=== PATIENT | male | born 1965 | race Caucasian/White ===

== ENCOUNTER 2021-08-03 10:20 | Inpatient (IN) ==
[2021-08-03] MEDS ORDERED: TICAGRELOR 90 MG TABLET ONE (10:24)
[2021-08-03] MEDS ORDERED: ONDANSETRON 4 MG/2 ML VIAL ONE (10:24)
[2021-08-03] MEDS ORDERED: MORPHINE 2 MG/1 ML SYRINGE ONE ×2 (10:24)
[2021-08-03] MEDS ORDERED: MORPHINE 2 MG/1 ML SYRINGE IM STA (10:27)
[2021-08-03] MEDS ORDERED: MORPHINE 2 MG/1 ML SYRINGE IV ONE (10:27)
[2021-08-03] MEDS ORDERED: ONDANSETRON 4 MG/2 ML VIAL IV STA (10:27)
[2021-08-03] MEDS ORDERED: NITROGLYCERIN DRIP 50 MG/250 ML BOTTLE IV PRN ×2 (10:30→10:31)
[2021-08-03] MEDS ORDERED: NITROGLYCERIN SL 0.4 MG TABLET SL ONE (10:31)
[2021-08-03] MEDS ORDERED: NITROGLYCERIN SL 0.4 MG TABLET SL STA (10:31)
[2021-08-03] MEDS ORDERED: TICAGRELOR 90 MG TABLET PO STA (10:32)
[2021-08-03] MEDS ORDERED: SODIUM CHLORIDE 0.9% 1,000 ML IV STA (10:38)
[2021-08-03 10:49] LABS: Basophils # 0.1 10*3/uL (0.0-0.2); Basophils % 0.9 % (0.0-0.8); Eosinophils # 0.1 10*3/uL (0.0-0.87); Eosinophils % 0.7 % (0.00-10.9); Hematocrit 46.2 VOL% (42.0-52.0); Hemoglobin 14.5 GM/DL (14.0-18.0); Immature Granulocytes % 0.2 %; Immature Granulocytes Absolute 0.02 #; Lymphocytes # 1.4 10*3/uL (1.4-4.0); Lymphocytes % 15.5 % (21.2-54.2); Mean Corpuscular HGB Conc 31.4 GM/DL (32-36); Mean Corpuscular Volume 91.8 FL (87-102); Mean Platelet Volume 11.8 FL (9.6-12.0); Monocytes # 0.9 10*3/uL (0.11-0.8); Monocytes % 9.9 % (1.7-12.7); Neutrophils % 72.8 % (38.7-73.9); Platelet Count 190 T/CUMM (130-400); Red Blood Count 5.03 MC/CUMM (3.8-5.5); Red Cell Distribution Width 17.2 % (9.3-17.3); White Blood Count 8.8 T/CUMM (4-12)
[2021-08-03 11:12] LABS: Calcium 9.5 MG/DL (8.5-10.1); Osmolality,Calculated 285.4 MOS/KG (273-304); Potassium 3.4 MMOL/L (3.5-5.1)
[2021-08-03] MEDS ORDERED: NALOXONE 0.4 MG/ML VIAL ONE (11:14)
[2021-08-03 11:16] LABS: INR 1.1; PT Patient Result 12.1 SECS (10.5-12.0)
[2021-08-03 11:17] LABS: Partial Thromboplastin Time < 20.0 SECS (23.8-32.1)
[2021-08-03] MEDS ORDERED: ETOMIDATE 20 MG/10 ML VIAL IV ONE (11:27)
[2021-08-03] MEDS ORDERED: ROCURONIUM 100 MG/10 ML VIAL IV ONE (11:28)
[2021-08-03 11:50] LABS: Anisocytosis 1+; Macrocytosis 1+; Platelet Estimate Normal
[2021-08-03 12:12] LABS: Barbiturates Screen,Urine Negative (Negative); Benzodiazepines Screen,Urine Negative (Negative); Cannabinoid Screen,Urine Negative (Negative); Opiate Screen,Urine Negative (Negative); Phencyclidine Screen,Urine Negative (Negative)
[2021-08-03] MEDS ORDERED: ALBUTEROL 2.5 MG/3 ML NEB RESP TX PRN (12:15)
[2021-08-03] MEDS ORDERED: hydrALAZINE 20 MG/1 ML VIAL IV PRN (12:19)
[2021-08-03] MEDS ORDERED: ONDANSETRON 4 MG/2 ML VIAL IV PRN (12:19)
[2021-08-03] MEDS: SODIUM CHLORIDE 0.9% 1,000 ML IV SCH ×3 (12:30→23:40)
[2021-08-03] MEDS: ALBUTEROL/IPRATROPIUM 3 ML NEB RESP TX SCH ×2 (13:02→19:55)
[2021-08-03 13:05] VITALS: BP 177/121
[2021-08-03 13:10] LABS: Arterial Base Excess iSTAT -3 MMOL/L (-2.5-2.5); Arterial Bicarbonate iSTAT 27.1 MMOL/L (20-26); Arterial O2 Saturation iSTAT 100 % (95-100); Arterial PCO2 iSTAT 69 MM HG (35-48); Arterial PO2 iSTAT 302 MM HG (80-95); Arterial Total CO2 iSTAT 29 MMO/L (23-27); Arterial pH iSTAT 7.204 (7.35-7.45)
[2021-08-03] MEDS ORDERED: MIDAZOLAM 100 MG in SODIUM CHLORIDE 0.9% 80 ML IV PRN (13:34)
[2021-08-03] MEDS ORDERED: METOPROLOL TARTRATE 5 MG/5 ML VIAL IV PRN (14:13)
[2021-08-03] MEDS ORDERED: MORPHINE 2 MG/1 ML SYRINGE IV PRN (14:22)
[2021-08-03 14:51] LABS: Arterial Base Excess iSTAT -2 MMOL/L (-2.5-2.5); Arterial Bicarbonate iSTAT 26.6 MMOL/L (20-26); Arterial O2 Saturation iSTAT 99 % (95-100); Arterial PCO2 iSTAT 59 MM HG (35-48); Arterial PO2 iSTAT 150 MM HG (80-95); Arterial Total CO2 iSTAT 28 MMO/L (23-27); Arterial pH iSTAT 7.265 (7.35-7.45)
[2021-08-03] MEDS ORDERED: POTASSIUM CHLORIDE 20 MEQ TABLET PO ONE (15:00)
[2021-08-03 15:01] LABS: Lactic Acid 1.4 MMOL/L (0.4-2.0)
[2021-08-03 15:14] LABS: Amorphous Crystals,Urine Occasional /HPF (Few); Bacteria,Urine Occasional /HPF (Few); Bilirubin,Urine Small mg/dL (Negative); Blood, Urine Small mg/dL (Negative); Glucose,Urine (UA) Negative (Negative); Hyaline Casts,Urine 21 /LPF (0-3); Ketones,Urine Negative (Negative); Mucus,Urine Occasional /LPF (Occasional); Nitrite,Urine Negative (Negative); Protein,Urine 100 mg/dL (Negative); RBC,Urine 4 /HPF (0-4); Sperm,Urine Occasional /HPF (Negative); Squamous Epithelial Cell,Urine Occasional /HPF (0-10); Urine Appearance Cloudy (Clear); Urine Color Yellow (Yellow); Urine Specific Gravity 1.026 (1.001-1.035)
[2021-08-03 15:15] LABS: Urine Urobilinogen 0.2 eU/dL (<2.0)
[2021-08-03 15:40] LABS: Hepatitis B Core IgM Quant 0.16 Index; Hepatitis B Surface Ag Result Non-Reactive (NonReactive); Hepatitis C Virus Ab Quant 0.05 Index; Hepatitis C Virus Ab Result Non-Reactive (NonReactive)
[2021-08-03 16:30] LABS: HIV Antigen/Antibody Result Nonreactive (Nonreactive)
[2021-08-03] MEDS: PANTOPRAZOLE 40 MG VIAL IV SCH (16:30)
[2021-08-03] MEDS: POTASSIUM CHLORIDE RIDER 10 MEQ/100 ML PREMIX IV PRN ×3 (16:31→18:26)
[2021-08-03] MEDS: cefTRIAXone 1,000 MG in SODIUM CHLORIDE 0.9% 100 ML IV SCH (17:57)
[2021-08-03] MEDS ORDERED: METOPROLOL TARTRATE 5 MG/5 ML VIAL IV SCH (18:00)
[2021-08-04] MEDS: ALBUTEROL/IPRATROPIUM 3 ML NEB RESP TX SCH ×4 (00:50→18:20)
[2021-08-04 03:42] LABS: Basophils % 0.6 % (0.0-0.8); Eosinophils # 0.1 10*3/uL (0.0-0.87); Eosinophils % 1.7 % (0.00-10.9); Hematocrit 40.2 VOL% (42.0-52.0); Hemoglobin 12.7 GM/DL (14.0-18.0); Immature Granulocytes % 0.3 %; Immature Granulocytes Absolute 0.02 #; Lymphocytes # 1.2 10*3/uL (1.4-4.0); Lymphocytes % 18.5 % (21.2-54.2); Mean Corpuscular HGB Conc 31.6 GM/DL (32-36); Mean Corpuscular Volume 91.6 FL (87-102); Monocytes % 14.7 % (1.7-12.7); Neutrophils % 64.2 % (38.7-73.9); Platelet Count 112 T/CUMM (130-400); Red Blood Count 4.39 MC/CUMM (3.8-5.5); Red Cell Distribution Width 17.5 % (9.3-17.3); White Blood Count 6.6 T/CUMM (4-12)
[2021-08-04 04:12] LABS: Albumin 3.4 G/DL (3.4-5.0); Bilirubin,Total 0.7 MG/DL (0.20-1.00); Calcium 8.3 MG/DL (8.5-10.1); Potassium 3.6 MMOL/L (3.5-5.1); Risk Ratio 2.67; Total Protein 6.3 G/DL (6.4-8.2); VLDL Cholesterol 13.6 MG/DL
[2021-08-04 04:57] LABS: ABG Base Excess -1.6 MMOL/L (-2.5-2.5); ABG HCO3 23.1 MMOL/L (20-26); ABG Oxygen Saturation 99.2 % (95-100); ABG PH 7.383 (7.35-7.45); ABG TCO2 20.6 MMOL/L (23-27)
[2021-08-04] MEDS: POTASSIUM CHLORIDE RIDER 10 MEQ/100 ML PREMIX IV PRN (05:52)
[2021-08-04] MEDS: SODIUM CHLORIDE 0.9% 1,000 ML IV SCH ×2 (09:35→19:35)
[2021-08-04] MEDS: ENOXAPARIN 40 MG/0.4 ML SYRINGE SUBCUT SCH (09:45)
[2021-08-04] MEDS: CLORAZEPATE 7.5 MG TABLET PO SCH ×3 (09:47→20:58)
[2021-08-04] MEDS ORDERED: ASPIRIN 325 MG TABLET PO SCH (10:30)
[2021-08-04] MEDS: ASPIRIN CHEW 81 MG TABLET PO SCH (11:02)
[2021-08-04] MEDS: PANTOPRAZOLE 40 MG VIAL IV SCH (12:37)
[2021-08-04] MEDS: cefTRIAXone 1,000 MG in SODIUM CHLORIDE 0.9% 100 ML IV SCH (17:26)
[2021-08-04] MEDS: carvediloL 6.25 MG TABLET PO SCH (20:58)
[2021-08-05] MEDS: ALBUTEROL/IPRATROPIUM 3 ML NEB RESP TX SCH ×2 (00:17→06:47)
[2021-08-05 03:30] LABS: ABG Base Excess -2.8 MMOL/L (-2.5-2.5); ABG HCO3 22.1 MMOL/L (20-26); ABG Oxygen Saturation 99.5 % (95-100); ABG PCO2 39.1 MM HG (35-48); ABG PH 7.363 (7.35-7.45); ABG TCO2 19.5 MMOL/L (23-27)
[2021-08-05 03:53] LABS: Basophils % 0.5 % (0.0-0.8); Eosinophils # 0.2 10*3/uL (0.0-0.87); Eosinophils % 3.9 % (0.00-10.9); Hematocrit 42.6 VOL% (42.0-52.0); Hemoglobin 13.1 GM/DL (14.0-18.0); Immature Granulocytes % 0.4 %; Immature Granulocytes Absolute 0.02 #; Lymphocytes # 0.6 10*3/uL (1.4-4.0); Lymphocytes % 11.2 % (21.2-54.2); Mean Corpuscular HGB Conc 30.8 GM/DL (32-36); Mean Corpuscular Volume 94.7 FL (87-102); Monocytes # 0.7 10*3/uL (0.11-0.8); Monocytes % 12.3 % (1.7-12.7); Neutrophils % 71.7 % (38.7-73.9); Platelet Count 104 T/CUMM (130-400); Red Cell Distribution Width 17.9 % (9.3-17.3); White Blood Count 5.7 T/CUMM (4-12)
[2021-08-05 04:26] LABS: Calcium 8.2 MG/DL (8.5-10.1); Osmolality,Calculated 283.3 MOS/KG (273-304); Potassium 4.5 MMOL/L (3.5-5.1)
[2021-08-05 04:41] LABS: Phosphorous 3.1 MG/DL (2.5-4.9)
[2021-08-05] MEDS: SODIUM CHLORIDE 0.9% 1,000 ML IV SCH ×2 (05:34→05:35)
[2021-08-05] MEDS: CLORAZEPATE 7.5 MG TABLET PO SCH (08:56)
[2021-08-05] MEDS: ASPIRIN CHEW 81 MG TABLET PO SCH (08:56)
[2021-08-05] MEDS: carvediloL 6.25 MG TABLET PO SCH (08:56)
[2021-08-05] MEDS: ENOXAPARIN 40 MG/0.4 ML SYRINGE SUBCUT SCH ×2 (08:56→08:58)
[2021-08-05] MEDS ORDERED: ZIPRASIDONE 20 MG/1 ML VIAL IM PRN (09:38)
[2021-08-05] MEDS ORDERED: LORazepam 2 MG/1 ML VIAL IV PRN (09:39)
[2021-08-05] MEDS ORDERED: carvediloL 3.125 MG TABLET PO SCH (17:00)
[2021-08-06] MEDS ORDERED: FUROSEMIDE 40 MG TABLET PO SCH (09:00)
[2021-08-06] MEDS ORDERED: allopurinoL 100 MG TABLET PO SCH (09:00)
== END 2021-08-05 11:10 | disposition left against medical advice (07) | DRG 812 ==
LOC: EDBD → N.ED 10:20 → N.EDINP 12:15 → N.ICU 13:55
PROVIDERS: ADMIT Internal Medicine; ATTEND Internal Medicine